=== PATIENT | female | born 1985 | race American Indian/Alaskan Native ===

== ENCOUNTER 2019-02-19 00:38 | Emergency (ER) | payer OTHER ==
[2019-02-19 01:29] LABS: Hematocrit 30.4 % (30.3-42.9); Hemoglobin 10.5 gm/dl (10.1-14.3); Mean Corpuscular HGB Conc 34 % (30-34); Mean Corpuscular Volume 78 fl (79-97); Platelet Count 220 K/mm3 (140-440); Red Cell Distribution Width 15.5 % (13.2-15.2)
[2019-02-19 02:21] LABS: Alanine Aminotransferase 19 units/L (7-56); Albumin 4.7 g/dL (3.9-5); BUN/Creatinine Ratio 18; Blood Urea Nitrogen 11 mg/dL (7-17); Calcium 9.8 mg/dL (8.4-10.2); Hemolysis Index 0
[2019-02-19] MEDS ORDERED: ONDANSETRON 4 MG/2 ML INJ IV ONE (03:24)
[2019-02-19] MEDS ORDERED: KETOROLAC 30 MG/1 ML INJ IV ONE (03:24)
[2019-02-19] MEDS ORDERED: SODIUM CHLORIDE 0.9% 1000 ML IV SOLN IV ONE (03:24)
[2019-02-19] MEDS ORDERED: PIPERACIL/TAZOBACTA 4.5/NS 100 4.5 GM/100 ML VIAL IV ONE (03:24)
--- NOTE | 2019-02-19 04:03 | Emergency Department Report ---
ED Abdominal Pain HPI - General Chief Complaint: Abdominal Pain Stated Complaint: EMESIS/ABD PAIN Time Seen by Provider: 02/19/19 02:50 Source: patient Mode of arrival: Ambulatory Limitations: No Limitations - History of Present Illness Initial Comments: Pt is a 33 y/o aaf who presents for abd pain x 1 week and now with n/v x 1 day. pt has hx of GERD there is no fever no chills. states unable to tolerate po. GERD currently tx with omeprazole po. pain is described as 4/10 cramping aching. MD Complaint: abdominal pain Onset/Timin -: days(s), week(s) Location: LLQ, RLQ, epigastric Radiation: LLQ, RLQ Migration to: LLQ, RLQ Severity scale (0 -10): 8 Quality: cramping, aching Consistency: constant Improves With: nothing Worsens With: eating Associated Symptoms: nausea, vomiting - Related Data LMP Date: 02/04/19 Previous Rx's Medication Instructions Recorded Last Taken Type Nitrofurantoin [place]/M-Cryst 100 mg PO Q12HR #14 capsule 02/19/19 Unknown Rx [Macrobid CAP] Omeprazole 20 mg PO BID #4 tab. 02/19/19 Unknown Rx Ondansetron [Zofran Odt] 4 mg PO Q8HR 3 Days #6 tab.rapdis 02/19/19 Unknown Rx traMADol [Ultram] 50 mg PO Q6HR PRN #12 tablet 02/19/19 Unknown Rx Allergies Allergy/AdvReac Type Severity Reaction Status Date / Time No Known Allergies Allergy Verified 02/19/19 00:41 ED Review of Systems ROS: Stated complaint: EMESIS/ABD PAIN Other details as noted in HPI Constitutional: denies: chills, fever Eyes: denies: eye pain, eye discharge, vision change ENT: denies: ear pain, throat pain Respiratory: denies: cough, shortness of breath, wheezing Cardiovascular: denies: chest pain, palpitations Endocrine: no symptoms reported Gastrointestinal: abdominal pain, nausea, vomiting. denies: diarrhea, constipation, hematemesis, melena, hematochezia Genitourinary: denies: urgency, dysuria, frequency, hematuria, discharge Musculoskeletal: as per HPI Skin: denies: rash, lesions Neurological: denies: headache, weakness, paresthesias Psychiatric: denies: anxiety, depression Hematological/Lymphatic: denies: easy bleeding, easy bruising ED Past Medical Hx - Past Medical History Previous Medical History?: Yes Hx Psychiatric Treatment: (schizo) Additional medical history: high chol - Surgical History Past Surgical History?: No - Social History Smoking Status: Never Smoker Substance Use Type: Marijuana - Medications Home Medications: Home Medications Medication Instructions Recorded Confirmed Last Taken Type Nitrofurantoin [place]/M-Cryst 100 mg PO Q12HR #14 capsule 02/19/19 Unknown Rx [Macrobid CAP] Omeprazole 20 mg PO BID #4 tab. 02/19/19 Unknown Rx Ondansetron [Zofran Odt] 4 mg PO Q8HR 3 Days #6 tab.jacquelyn 02/19/19 Unknown Rx traMADol [Ultram] 50 mg PO Q6HR PRN #12 tablet 02/19/19 Unknown Rx ED Physical Exam - General Limitations: No Limitations General appearance: alert, in no apparent distress - Head Head exam: Present: atraumatic, normocephalic - Eye Eye exam: Present: normal appearance, PERRL, EOMI Pupils: Present: normal accommodation - ENT ENT exam: Present: normal orophraynx, mucous membranes moist - Neck Neck exam: Present: normal inspection, full ROM. Absent: tenderness, meningismus, lymphadenopathy, thyromegaly - Respiratory Respiratory exam: Present: normal lung sounds bilaterally. Absent: respiratory distress, wheezes, stridor, chest wall tenderness - Cardiovascular Cardiovascular Exam: Present: regular rate, normal rhythm, normal heart sounds. Absent: systolic murmur, diastolic murmur, rubs, gallop - GI/Abdominal GI/Abdominal exam: Present: tenderness (LLQ, RLQ ), normal bowel sounds. Absent: distended, guarding, rebound, rigid, bruit, hernia - Rectal Rectal exam: Present: deferred - Extremities Exam Extremities exam: Present: normal inspection, full ROM, normal capillary refill. Absent: tenderness, pedal edema, joint swelling - Back Exam Back exam: Present: normal inspection, full ROM. Absent: tenderness, CVA tenderness (R), CVA tenderness (L), muscle spasm, vertebral tenderness, rash noted - Neurological Exam Neurological exam: Present: alert, oriented X3, normal gait - Psychiatric Psychiatric exam: Present: normal affect, normal mood - Skin Skin exam: Present: warm, dry, intact, normal color. Absent: rash ED Course Vital Signs 02/19/19 02/19/19 02/19/19 00:50 03:37 04:07 Temperature 98.4 F Pulse Rate 70 Respiratory 18 18 18 Rate Blood Pressure 98/42 O2 Sat by Pulse 97 Oximetry - Reevaluation(s) Reevaluation #1: symptoms are improved with fluids, abx and zofran, will atttempt po challenge. after ivfs completed. 02/19/19 04:19 02/19/19 05:00 : pt tolerating po intake without n/v , ct abd pelvis pendining, V/S P: 89, R: 16, T: 98.2, bp: 110/61, pt states symptoms are relieved. Will follow up on pt status. ED Medical Decision Making - Lab Data Result diagrams: 02/19/19 01:15 02/19/19 01:15 Labs 02/19/19 02/19/19 01:15 01:15 WBC 15.7 H RBC 3.90 Hgb 10.5 Hct 30.4 MCV 78 L MCH 27 L MCHC 34 RDW 15.5 H Plt Count 220 Seg Neutrophils % Pump Operator Byproducts Sodium 138 Potassium 4.3 Chloride 104.6 Carbon Dioxide 15 L Anion Gap 23 BUN 11 Creatinine 0.6 L Estimated GFR > 60 BUN/Creatinine Ratio 18 Glucose 167 H Calcium 9.8 Total Bilirubin 0.30 AST 24 ALT 19 Alkaline Phosphatase 71 Total Protein 8.4 H Albumin 4.7 Albumin/Globulin Ratio 1.3 Lipase 13 Labs 02/19/19 02/19/19 02/19/19 01:15 01:15 03:39 WBC 15.7 H RBC 3.90 Hgb 10.5 Hct 30.4 MCV 78 L MCH 27 L MCHC 34 RDW 15.5 H Plt Count 220 Add Manual Diff Complete Total Counted 100 Seg Neutrophils % Pump Operator Byproducts Seg Neuts % (Manual) 93.0 H Band Neutrophils % 0 Lymphocytes % (Manual) 5.0 L Reactive Lymphs % (Man) 0 Monocytes % (Manual) 2.0 Eosinophils % (Manual) 0 Basophils % (Manual) 0 Metamyelocytes % 0 Myelocytes % 0 Promyelocytes % 0 Blast Cells % 0 Nucleated RBC % Not Reportable Seg Neutrophils # Man 14.6 H Band Neutrophils # 0.0 Lymphocytes # (Manual) 0.8 L Abs React Lymphs (Man) 0.0 Monocytes # (Manual) 0.3 Eosinophils # (Manual) 0.0 Basophils # (Manual) 0.0 Metamyelocytes # 0.0 Myelocytes # 0.0 Promyelocytes # 0.0 Blast Cells # 0.0 WBC Morphology Not Reportable Hypersegmented Neuts Not Reportable Hyposegmented Neuts Not Reportable Hypogranular Neuts Not Reportable Smudge Cells Not Reportable Toxic Granulation Not Reportable Toxic Vacuolation Not Reportable Dohle Bodies Not Reportable Pelger-Huet Anomaly Not Reportable Stefany Rods Not Reportable Platelet Estimate Consistent w auto Clumped Platelets Not Reportable Plt Clumps, EDTA Not Reportable Large Platelets Not Reportable Giant Platelets Not Reportable Platelet Satelliting Not Reportable Plt Morphology Comment Not Reportable RBC Morphology Not Reportable Dimorphic RBCs Not Reportable Polychromasia Not Reportable Hypochromasia Not Reportable Poikilocytosis Not Reportable Anisocytosis 1+ Microcytosis Not Reportable Macrocytosis Not Reportable Spherocytes Not Reportable Pappenheimer Bodies Not Reportable Sickle Cells Not Reportable Target Cells Not Reportable Tear Drop Cells Not Reportable Ovalocytes Not Reportable Helmet Cells Not Reportable [place]-Jud Bodies Not Reportable [place] Rings Not Reportable Sandra Cells Not Reportable Bite Cells Not Reportable Crenated Cell Not Reportable Elliptocytes Not Reportable Acanthocytes (Spur) Not Reportable Rouleaux Not Reportable Hemoglobin C Crystals Not Reportable Schistocytes Not Reportable Malaria parasites Not Reportable Forrest Bodies Not Reportable Hem Pathologist Commnt No Sodium 138 Potassium 4.3 Chloride 104.6 Carbon Dioxide 15 L Anion Gap 23 BUN 11 Creatinine 0.6 L Estimated GFR > 60 BUN/Creatinine Ratio 18 Glucose 167 H Lactic Acid 4.50 H* Calcium 9.8 Total Bilirubin 0.30 AST 24 ALT 19 Alkaline Phosphatase 71 Total Protein 8.4 H Albumin 4.7 Albumin/Globulin Ratio 1.3 Lipase 13 Urine Color Urine Turbidity Urine pH Ur Specific [place] Urine Protein Urine Glucose (UA) Urine Ketones Urine Blood Urine Nitrite Ur Reducing Substances Urine Bilirubin Urine Ictotest Urine Urobilinogen Ur Leukocyte Esterase Urine WBC (Auto) Urine RBC (Auto) U Epithel Cells (Auto) Urine Mucus Urine HCG, Qual 02/19/19 02/19/19 04:38 Unknown WBC RBC Hgb Hct MCV MCH MCHC RDW Plt Count Add Manual Diff Total Counted Seg Neutrophils % Seg Neuts % (Manual) Band Neutrophils % Lymphocytes % (Manual) Reactive Lymphs % (Man) Monocytes % (Manual) Eosinophils % (Manual) Basophils % (Manual) Metamyelocytes % Myelocytes % Promyelocytes % Blast Cells % Nucleated RBC % Seg Neutrophils # Man Band Neutrophils # Lymphocytes # (Manual) Abs React Lymphs (Man) Monocytes # (Manual) Eosinophils # (Manual) Basophils # (Manual) Metamyelocytes # Myelocytes # Promyelocytes # Blast Cells # WBC Morphology Hypersegmented Neuts Hyposegmented Neuts Hypogranular Neuts Smudge Cells Toxic Granulation Toxic Vacuolation Dohle Bodies Pelger-Huet Anomaly Stefany Rods Platelet Estimate Clumped Platelets Plt Clumps, EDTA Large Platelets Giant Platelets Platelet Satelliting Plt Morphology Comment RBC Morphology Dimorphic RBCs Polychromasia Hypochromasia Poikilocytosis Anisocytosis Microcytosis Macrocytosis Spherocytes Pappenheimer Bodies Sickle Cells Target Cells Tear Drop Cells Ovalocytes Helmet Cells [place]-Jud Bodies [place] Rings [place] Cells Bite Cells Crenated Cell Elliptocytes Acanthocytes (Spur) Rouleaux Hemoglobin C Crystals Schistocytes Malaria parasites Forrest Bodies Hem Pathologist Commnt Sodium Potassium Chloride Carbon Dioxide Anion Gap BUN Creatinine Estimated GFR BUN/Creatinine Ratio Glucose Lactic Acid 2.70 H* Calcium Total Bilirubin AST ALT Alkaline Phosphatase Total Protein Albumin Albumin/Globulin Ratio Lipase Urine Color Yellow Urine Turbidity Cloudy Urine pH 5.0 Ur Specific [place] 1.038 H Urine Protein 100 mg/dl Urine Glucose (UA) Neg Urine Ketones 80 Urine Blood Neg Urine Nitrite Neg Ur Reducing Substances Not Reportable Urine Bilirubin Neg Urine Ictotest Not Reportable Urine Urobilinogen < 2.0 Ur Leukocyte Esterase Neg Urine WBC (Auto) 12.0 H Urine RBC (Auto) 11.0 U Epithel Cells (Auto) 1.0 Urine Mucus 3+ Urine HCG, Qual Negative - Radiology Data Radiology results: report reviewed, image reviewed Ordering Physician: CASANDRA WHITNEY NP Date of Service: 02/19/19 Procedure(s): CT abdomen pelvis w con Accession Number(s): [id number] cc: CASANDRA WHITNEY NP . CT ABDOMEN AND PELVIS WITH CONTRAST INDICATION / CLINICAL INFORMATION: abd pain. Nausea and vomiting for 2 days TECHNIQUE: Axial CT images were obtained through the abdomen and pelvis after 100 mL Omnipaque [address] scans at this location are performed using CT dose reduction for ALARA by means of automated exposure control. COMPARISON: None available. FINDINGS: LOWER CHEST: No significant abnormality. LIVER: No focal hepatic abnormality. Moderate periportal edema. GALLBLADDER: No gallstones or wall thickening. Mild pericholecystic fluid. BILE DUCTS: No significant abnormality. PANCREAS: No significant abnormality. SPLEEN: No significant abnormality. ADRENALS: No significant abnormality. RIGHT KIDNEY and URETER: No significant abnormality. LEFT KIDNEY and URETER: No significant abnormality. STOMACH and SMALL BOWEL: No significant abnormality. COLON: No significant abnormality. APPENDIX: Not definitely visualized PERITONEUM: Small amount of free fluid in the pelvis. No free air. No fluid hi ection. LYMPH NODES: No significant adenopathy. AORTA and ARTERIES: No significant abnormality. IVC and VEINS: No significant abnormality. URINARY BLADDER: No significant abnormality. REPRODUCTIVE ORGANS: Contracted left ovarian cyst versus follicle. ADDITIONAL FINDINGS: None. SKELETAL SYSTEM: No significant abnormality. IMPRESSION: 1. No inflammatory process or bowel obstruction. 2. Trace free fluid in the pelvis can be physiologic in this young female patient. 3. Periportal edema which can be seen in the setting of IV hydration. Signer Name: Paulie Valentine MD Signed: 02/19/2019 5:59 AM Workstation Name: [id number] Transcribed By: DT Dictated By: Dallas Valentine MD Electronically Authenticated By: Dallas Valentine MD Signed Date/Time: 02/19/19 0559 DD/ 0549 TD/TT: - Medical Decision Making CT Abd pelvis , pt rallied to Symptoms improved, pt dx is dehydration, this is more likely dehydration and not sirs/sepsis. pt appears well and nontoxic,pt is ambulatory with steady gait, pt is tolerating po intake without n/v. There is no fever , no sob, no cough, no resp distress, Ua: noted for wbc, luek.,, cbc: noted, Lactic acid 4.5, and 2.5 on repeat, fluid resuscitation completed and symptom resolution achieved. I have discussed all diagnostics with patient, including tx for UTI, Hydration therapy, and follow up with pcp, in 2-3 days. pt verbalized agreement and understanding of same Critical care attestation.: If time is entered above; I have spent that time in minutes in the direct care of this critically ill patient, excluding procedure time. ED Disposition Clinical Impression: Nausea and vomiting Qualifiers: Vomiting type: unspecified Vomiting Intractability: unspecified Qualified Co de(s): R11.2 - Nausea with vomiting, unspecified Abdominal pain Qualifiers: Abdominal location: lower abdomen, unspecified Qualified Code(s): R10.30 - Lower abdominal pain, unspecified Disposition: TO HOME OR SELFCARE Is pt being admited?: No Does the pt Need Aspirin: No Instructions: Abdominal Pain (ED) Prescriptions: Nitrofurantoin [place]/M-Cryst [Macrobid CAP] 100 mg PO Q12HR #14 capsule Omeprazole 20 mg PO BID #4 tab traMADol [Ultram] 50 mg PO Q6HR PRN #12 tablet PRN Reason: Pain Ondansetron [Zofran Odt] 4 mg PO Q8HR 3 Days #6 tabchris Referrals: LEIGH RODRIGUEZ MD [Primary Care Provider] - 3-5 Days [facility] [Provider Group] - 3-5 Days Forms: Work/School Release Form(ED) Time of Disposition: 06:26
[2019-02-19] MEDS ORDERED: SODIUM CHLORIDE 0.9% 1000 ML 1,000 ML IV ONE (04:20)
[2019-02-19 04:53] LABS: Anisocytosis 1+; Basophils % (Manual) 0 % (0.0-1.8); Eosinophils % (Manual) 0 % (0.0-4.3); Platelet Estimate Consistent w Auto; Total Cells Counted 100
[2019-02-19 05:07] LABS: HCG Qualitative,Urine Negative (Negative)
[2019-02-19 05:14] LABS: Bilirubin,Urine NEG (Negative); Blood,Urine NEG (Negative); Color,Urine Yellow (Yellow); Mucus,Urine 3+ /HPF; Urobilinogen,Urine < 2.0 mg/dL (<2.0)
--- NOTE | 2019-02-19 06:03 | Cat Scan Report ---
. CT ABDOMEN AND PELVIS WITH CONTRAST INDICATION / CLINICAL INFORMATION: abd pain. Nausea and vomiting for 2 days TECHNIQUE: Axial CT images were obtained through the abdomen and pelvis after 100 mL Omnipaque [address] scans at this location are performed using CT dose reduction for ALARA by means of automated exposure control. COMPARISON: None available. FINDINGS: LOWER CHEST: No significant abnormality. LIVER: No focal hepatic abnormality. Moderate periportal edema. GALLBLADDER: No gallstones or wall thickening. Mild pericholecystic fluid. BILE DUCTS: No significant abnormality. PANCREAS: No significant abnormality. SPLEEN: No significant abnormality. ADRENALS: No significant abnormality. RIGHT KIDNEY and URETER: No significant abnormality. LEFT KIDNEY and URETER: No significant abnormality. STOMACH and SMALL BOWEL: No significant abnormality. COLON: No significant abnormality. APPENDIX: Not definitely visualized PERITONEUM: Small amount of free fluid in the pelvis. No free air. No fluid collection. LYMPH NODES: No significant adenopathy. AORTA and ARTERIES: No significant abnormality. IVC and VEINS: No significant abnormality. URINARY BLADDER: No significant abnormality. REPRODUCTIVE ORGANS: Contracted left ovarian cyst versus follicle. ADDITIONAL FINDINGS: None. SKELETAL SYSTEM: No significant abnormality. IMPRESSION: 1. No inflammatory process or bowel obstruction. 2. Trace free fluid in the pelvis can be physiologic in this young female patient. 3. Periportal edema which can be seen in the setting of IV hydration. Signer Name: Paulie Valentine MD Signed: 02/19/2019 5:59 AM Workstation Name: [id number]
[2019-02-19 06:47] VITALS: BP 122/58
== END 2019-02-19 06:45 | disposition home or self-care (01) ==
LOC: ED 00:38
DX: E86.0 Dehydration (principal); K21.9 Gastro-esophageal reflux disease without esophagitis; R11.2 Nausea with vomiting, unspecified; F20.9 Schizophrenia, unspecified; E78.00 Pure hypercholesterolemia, unspecified; F12.10 Cannabis abuse, uncomplicated; Z79.899 Other long term (current) drug therapy
CPT/HCPCS: 36415; 74177; 80053; 81001; 81025; 82140; 83690; 85007; 85025; 87040; 87086; 96365; 96375; 99284; J1885; J2405; J2543; J7030; Q9967

== ENCOUNTER 2020-03-01 10:27 | Emergency (ER) | payer OTHER ==
[2020-03-01 10:41] VITALS: BP 186/153
[2020-03-01] MEDS ORDERED: ONDANSETRON 4 MG ODT TAB PO/SL ONE (10:44)
--- NOTE | 2020-03-01 10:44 | Emergency Department Report ---
Blank Doc - Documentation Documentation: [id number] female with a chronic recurrent history of jaw intestinal pain secondary to GERD and gastritis who has been seen at emergency department several times last about 1 month ago has an appointment with a gastrointestinal doctor on the of this month presents emerged department complaining of another flareup of nausea vomiting and epigastric pain that radiates through her mid abdomen. Reports no hemoptysis no hematemesis no hematochezia no chest pain palpitation no shortness of breath This initial assessment/diagnostic orders/clinical plan/treatment(s) is/are subject to change based on patients health status, clinical progression and re- assessment by fellow clinical providers in the ED. Further treatment and workup at subsequent clinical providers discretion. Patient/guardian urged not to elope from the ED as their condition may be serious if not clinically assessed and managed. Initial orders include: Labs
[2020-03-01 12:19] LABS: Basophils % (Auto) 0.4 % (0.0-1.8); Hemoglobin 9.1 gm/dl (10.1-14.3); Lymphocytes # (Auto) 0.7 K/mm3 (1.2-5.4); Lymphocytes % (Auto) 7.9 % (13.4-35.0); Mean Corpuscular HGB Conc 33 % (30-34); Mean Corpuscular Volume 75 fl (79-97); Monocytes # (Auto) 0.3 K/mm3 (0.0-0.8); Monocytes % (Auto) 2.8 % (0.0-7.3); Platelet Count 263 K/mm3 (140-440); Red Blood Count 3.76 M/mm3 (3.65-5.03); Red Cell Distribution Width 16.8 % (13.2-15.2)
[2020-03-01 12:32] LABS: Alanine Aminotransferase 12 units/L (7-56); Albumin 4.3 g/dL (3.9-5); Blood Urea Nitrogen 13 mg/dL (7-17); Calcium 9.6 mg/dL (8.4-10.2); Hemolysis Index 6
[2020-03-01 12:34] LABS: BUN/Creatinine Ratio 19; Bilirubin,Direct < 0.2 mg/dL (0-0.2)
[2020-03-01] MEDS ORDERED: diphenhydrAMINE 50 MG/ML VIAL IV ONE (13:31)
[2020-03-01] MEDS ORDERED: METOCLOPRAMIDE 10 MG/2 ML INJ IV ONE (13:31)
[2020-03-01] MEDS ORDERED: SODIUM CHLORIDE 0.9% 1000 ML 1,000 ML IV ONE (13:31)
--- NOTE | 2020-03-01 13:32 | Emergency Department Report ---
ED Abdominal Pain HPI - General Chief Complaint: Abdominal Pain Stated Complaint: CP/V/N Time Seen by Provider: 03/01/20 13:07 Source: patient Mode of arrival: Wheelchair Limitations: No Limitations - History of Present Illness Initial Comments: This is a 34-year-old female with past medical history of GERD and hyperlipidemia who presents the emergency department chief complaint of upper abdominal pain, nonbloody nonbilious vomiting with associated nausea started 3 AM this morning. She reports this is a chronic issue with will have episodes very frequently. She had tried her home Zofran without relief in her symptoms. She denies any associated fevers, chills, night sweats, headache, dizziness, blurry vision, chest pain, shortness of breath, hematemesis, melena, hematochezia or any other associated symptoms. - Related Data Previous Rx's Medication Instructions Recorded Last Taken Type Nitrofurantoin Mcculloch/M-Cryst 100 mg PO Q12HR #14 capsule 02/19/19 Unknown Rx [Macrobid CAP] Omeprazole 20 mg PO BID #4 tab.opal. 02/19/19 Unknown Rx Ondansetron [Zofran Odt] 4 mg PO Q8HR 3 Days #6 tab.jacquelyn 02/19/19 Unknown Rx traMADoL [Ultram] 50 mg PO Q6HR PRN #12 tablet 02/19/19 Unknown Rx Omeprazole 40 mg PO DAILY #30 capsule. 11/13/19 Unknown Rx Ondansetron [Zofran Odt] 4 mg PO Q8HR PRN #12 tab.jacquelyn 11/13/19 Unknown Rx Sucralfate [Carafate] 1 gm PO ACHS 7 Days #28 tablet 11/13/19 Unknown Rx Promethazine HCl [Phenergan SUPPOS] 25 mg RC TID #20 supp.rect 03/01/20 Unknown Rx Allergies Allergy/AdvReac Type Severity Reaction Status Date / Time No Known Allergies Allergy Verified 11/13/19 16:24 ED Review of Systems ROS: Stated complaint: CP/V/N Other details as noted in HPI Comment: All other systems reviewed and negative Constitutional: denies: chills, fever Eyes: denies: eye pain, eye discharge, vision change ENT: denies: ear pain, throat pain Respiratory: denies: cough, shortness of breath, wheezing Cardiovascular: denies: chest pain, palpitations Endocrine: no symptoms reported Gastrointestinal: as per HPI, abdominal pain, nausea, vomiting, diarrhea Genitourinary: denies: urgency, dysuria, discharge Musculoskeletal: denies: back pain, joint swelling, arthralgia Skin: denies: rash, lesions Neurological: denies: headache, weakness, paresthesias Psychiatric: denies: anxiety, depression Hematological/Lymphatic: denies: easy bleeding, easy bruising ED Past Medical Hx - Past Medical History Previous Medical History?: Yes Hx Psychiatric Treatment: (schizo) Additional medical history: high chol/ GERD - Social History Smoking Status: Never Smoker Substance Use Type: Marijuana - Medications Home Medications: Home Medications Medication Instructions Recorded Confirmed Last Taken Type Nitrofurantoin Mcculloch/M-Cryst 100 mg PO Q12HR #14 capsule 02/19/19 Unknown Rx [Macrobid CAP] Omeprazole 20 mg PO BID #4 tab.rap. 02/19/19 Unknown Rx Ondansetron [Zofran Odt] 4 mg PO Q8HR 3 Days #6 tab.opaldis 02/19/19 Unknown Rx traMADoL [Ultram] 50 mg PO Q6HR PRN #12 tablet 02/19/19 Unknown Rx Omeprazole 40 mg PO DAILY #30 capsule. 11/13/19 Unknown Rx Ondansetron [Zofran Odt] 4 mg PO Q8HR PRN #12 tab.opaldis 11/13/19 Unknown Rx Sucralfate [Carafate] 1 gm PO ACHS 7 Days #28 tablet 11/13/19 Unknown Rx Promethazine HCl [Phenergan SUPPOS] 25 mg RC TID #20 supp.rect 03/01/20 Unknown Rx ED Physical Exam - General Limitations: No Limitations General appearance: alert, in no apparent distress - Head Head exam: Present: atraumatic, normocephalic - Eye Eye exam: Present: normal appearance - ENT ENT exam: Present: mucous membranes moist - Neck Neck exam: Present: normal inspection - Respiratory Respiratory exam: Present: normal lung sounds bilaterally. Absent: respiratory distress, wheezes, rales, rhonchi, stridor - Cardiovascular Cardiovascular Exam: Present: regular rate, normal rhythm. Absent: systolic murmur, diastolic murmur, rubs, gallop - GI/Abdominal GI/Abdominal exam: Present: soft, tenderness, normal bowel sounds, other (No rebound or guarding). Absent: distended, guarding, rebound, rigid - Extremities Exam Extremities exam: Present: normal inspection, full ROM. Absent: tenderness - Back Exam Back exam: Present: normal inspection - Neurological Exam Neurological exam: Present: alert, oriented X3 - Psychiatric Psychiatric exam: Present: normal affect, normal mood - Skin Skin exam: Present: warm, dry, intact, normal color. Absent: rash ED Course Vital Signs 03/01/20 10:39 Temperature 98.2 F Pulse Rate 70 Respiratory 18 Rate Blood Pressure 186/153 [Right] O2 Sat by Pulse 98 Oximetry - Reevaluation(s) Reevaluation #1: 03/01/20 14:58 On reevaluation patient was feeling much better after Reglan, Benadryl and some of her IV fluids. She was able to tolerate p.o. fluids and wanted to go home. Her repeat abdominal exam showed no tenderness to palpation, no rebound or guarding. After further questioning the patient does report that she does smoke marijuana often and I suspect this could be hyperemesis from cyclic vomiting syndrome from her cannabis use and educated that she may want to discontinue this to avoid the symptoms in the future. We will discharge her in stable co ndition due to her wanting to go home. She did have a metabolic acidosis but after IV fluids a suspect this will be corrected. The patient was recommended to stick to clear liquids and return to the ER with any change or worsening symptoms. I will give her outpatient GI follow-up and rectal Phenergan and Bentyl for her symptoms. She verbalized understanding the diagnosis, treatment plan and follow-up instructions all of her questions were answered. ED Medical Decision Making - Lab Data Result diagrams: 03/01/20 11:46 03/01/20 11:46 Lab Results 03/01/20 03/01/20 03/01/20 Range/Units 11:46 11:46 11:46 WBC 9.5 (4.5-11.0) K/mm3 RBC 3.76 (3.65-5.03) M/mm3 Hgb 9.1 L (10.1-14.3) gm/dl Hct 28.0 L (30.3-42.9) % MCV 75 L (79-97) fl MCH 24 L (28-32) pg MCHC 33 (30-34) % RDW 16.8 H (13.2-15.2) % Plt Count 263 (140-440) K/mm3 Lymph % (Auto) 7.9 L (13.4-35.0) % Mcculloch % (Auto) 2.8 (0.0-7.3) % Eos % (Auto) 0.0 (0.0-4.3) % Baso % (Auto) 0.4 (0.0-1.8) % Lymph # (Auto) 0.7 L (1.2-5.4) K/mm3 Mcculloch # (Auto) 0.3 (0.0-0.8) K/mm3 Eos # (Auto) 0.0 (0.0-0.4) K/mm3 Baso # (Auto) 0.0 (0.0-0.1) K/mm3 Seg Neutrophils % 88.9 H (40.0-70.0) % Seg Neutrophils # 8.4 H (1.8-7.7) K/mm3 Sodium 136 L (137-145) mmol/L Potassium 4.1 (3.6-5.0) mmol/L Chloride 104.9 (98-107) mmol/L Carbon Dioxide 17 L (22-30) mmol/L Anion Gap 18 mmol/L BUN 13 (7-17) mg/dL Creatinine 0.7 (0.6-1.2) mg/dL Estimated GFR > 60 ml/min BUN/Creatinine Ratio 19 % Glucose 122 H (65-100) mg/dL Calcium 9.6 (8.4-10.2) mg/dL Total Bilirubin < 0.20 (0.1-1.2) mg/dL Direct Bilirubin < 0.2 (0-0.2) mg/dL AST 19 (5-40) units/L ALT 12 (7-56) units/L Alkaline Phosphatase 72 (35-129) units/L Total Protein 7.5 (6.3-8.2) g/dL Albumin 4.3 (3.9-5) g/dL Albumin/Globulin Ratio 1.3 % Lipase 19 (13-60) units/L HCG, Qual Negative (Negative) Critical care attestation.: If time is entered above; I have spent that time in minutes in the direct care of this critically ill patient, excluding procedure time. ED Disposition Clinical Impression: Metabolic acidosis, Cyclic vomiting syndrome Disposition: - TO HOME OR SELFCARE Is pt being admited?: No Condition: Stable Instructions: Abdominal Pain (ED), Cyclic Vomiting Syndrome, Adult Prescriptions: Promethazine HCl [Phenergan SUPPOS] 25 mg RC TID #20 supp.rect Referrals: [facility] [Provider Group] - 3-5 Days Forms: Work/School Release Form(ED) Time of Disposition: 15:01
== END 2020-03-01 16:18 | disposition home or self-care (01) ==
LOC: ED 10:27
DX: E87.2 Acidosis (principal); R11.15 Cyclical vomiting syndrome unrelated to migraine; F20.9 Schizophrenia, unspecified; F12.10 Cannabis abuse, uncomplicated; Z79.899 Other long term (current) drug therapy
CPT/HCPCS: 36415; 80048; 80076; 83690; 84703; 85025; 96361; 96374; 96375; 99283; J1200; J2765; J7030